=== PATIENT | male | born 1995 | race Caucasian/White ===

== ENCOUNTER 2018-12-12 22:50 | Emergency (ER) | payer OTHER ==
[2018-12-12] MEDS ORDERED: NORMAL SALINE 1000 ML 1,000 ML IV ONE (22:53)
--- NOTE | 2018-12-12 23:13 | ER Document Report ---
ED General - General Stated Complaint: PSYCH Time Seen by Provider: 12/12/18 22:52 Notes: Patient is a 23-year-old male who is brought in by paramedics. He is brought in after being sedated with 400 mg IM of ketamine. Please were called to the patient's house because the who is out of town was talking to him on phone and realized that he was acting abnormal. Medics were called by the police. They said that he was somewhat hyper and not making sense and not able to stay on topic. That he was all over the place of the house. They said he eventually took off all his close. I said initially he was still cooperative even though he was obviously confused and not himself. Once he got to the ambulance he started to freak out and started breaking stuff in the ambulance and swinging about and therefore they had sedation with ketamine. They said before the ketamine sedation his pupils were dilated. He said his heart rate appeared to be normal before sedation with ketamine. The told the paramedics and found the patient does have a previous history of overdose a month ago. He had overdosed on Celexa tablets. She says he also has a previous history of marijuana and acid use. He apparently has been doing well at home since the overdose and has not had any further issues until tonight. Patient is unable to contribute to history at this time. - Related Data Allergies/Adverse Reactions: No Known Allergies Allergy (Verified 12/12/18 23:56) Past Medical History - Social History Smoking Status: Unknown if Ever Smoked Frequency of alcohol use: unkown Drug Abuse: Other - unknown Family History: Reviewed & Not Pertinent Review of Systems - Review of Systems -: Yes ROS unobtainable due to patient's medical condition - Patient is sedated with ketamine. Physical Exam - Vital signs Vitals: Resp Pulse Ox 47 H 100 12/12/18 23:07 12/12/18 23:07 - Notes Notes: General Appearance: Patient lying still in bed. Patient under sedation from ketamine. Vitals: reviewed, See vital signs table. Head: no swelling or tenderness to the head Eyes: PERRL, EOMI, Conjuctiva clear Mouth: No decreasd moisture Throat: No tonsillar inflammation, No airway obstruction, No lymphadenopathy Lungs: No wheezing, No rales, No rhonci, No accessory muscle use, good air exchange bilaterally. Heart: Slightly tachycardic rate, Regular rythm, No murmur, no rub Abdomen: Normal BS, soft, No rigidity, No guarding, no rebound, no abdominal masses, no organomegaly Extremities: good pulses in all extremities, no swelling or tenderness in the extremities, no edema. Skin: warm, dry, appropriate color, no rash Neuro: Vision currently sedated from ketamine. Laying in bed not moving. Does not follow commands or answer questions at this time. Pulses are equal and reactive to light. Course - Re-evaluation Re-evalutation: 12/13/18 02:49 Patient is awake and alert and acting appropriately. The radiologist to call me until me that patient has numerous foci on the CT scan. He said these can be findings consistent with a young person but could also could represent cerebral edema. He says the patient remains confused or altered and he may need repeat imaging. Patient currently is back to his normal baseline. He is awake alert answers all questions appropriate. He says he somewhat remembers what happened. He said he had just smoked some marijuana. He says he felt like he was somewhat in control of what was happening however also felt like he was having a dream and that he had just fallen asleep. He denies using any other drugs. He is now fully neurologically intact. Cranial nerves II through XII are intact. Is able to stand and walk without difficulty. He has normal coordination of movements. I do not suspect the patient has cerebral edema based on his completely normal repeat neuro exam. I did explain the CT findings to the patient and explained my reasoning of why I do not think he has cerebral edema in his understanding of the. Patient says that he is ready to go home. He says he smokes marijuana on a daily basis to help deal with anxiety. He says he has been on medications in the past and seen psychiatry and psychology due to his anxiety but he says that medications never work as well as the marijuana and therefore that is why he does marijuana on a regular basis. I informed him that we have been noticing that there is been a lot of what we suspect is synthetic marijuana being cut with normal marijuana however this is not being told to be providing it and we have been seeing delirium at this reactions because of this. I informed him that he should not smoke from the same stash that he smoked from today. Patient shows understanding of this. Patient will be discharged home once his roommate arrives to take him home. I encouraged him return to ER at any time if he has any confusion, fevers, vomiting, headaches, or if he feels unwell. Patient agrees with plan will be discharged home. Dictation of this chart was performed using voice recognition software; the refore, there may be some unintended grammatical errors. - Vital Signs Vital signs: Temp Pulse Resp BP Pulse Ox 20 137/76 H 100 12/13/18 01:01 12/13/18 01:01 12/13/18 01:01 - Laboratory Result Diagrams: 12/12/18 23:29 12/12/18 23:29 Laboratory results interpreted by me: 12/12/18 12/12/18 12/13/18 23:29 23:29 00:00 WBC 11.1 H POC Glucose 114 H Total Protein 8.4 H Urine Protein Urine Ketones Urine Blood Urine Urobilinogen Salicylates < 1.0 L Acetaminophen < 10 L 12/13/18 00:25 WBC POC Glucose Total Protein Urine Protein 100 H Urine Ketones 20 H Urine Blood SMALL H Urine Urobilinogen 4.0 H Salicylates Acetaminophen - EKG Interpretation by Me Additional EKG results interpreted by me: 12/13/18 00:04 EKG is reviewed and interpreted by me. EKG shows sinus tachycardia with a rate of [address] segment elevation or depression. No ischemic T wave inversions. IL interval, QRS duration, QT intervals are within normal range. No old EKG available for comparison. Discharge - Discharge Clinical Impression: Marijuana use Altered mental status Qualifiers: Altered mental status type: unspecified Qualified Code(s): R41.82 - Altered mental status, unspecified Condition: Good Disposition: HOME, SELF-CARE Additional Instructions: Please avoid use of marijuana from the staff that you smoke from today. It may be mixed with a synthetic marijuana which sometimes can cause some agitation and worsening delirium. Your CT scan showed findings which are usual normal for a young person such such as yourself; however, the radiologist also mentions the same findings can also be seen in a person with cerebral edema (brain swelling). I do not suspect you have cerebral edema ( swelling of the brain) as you are now back to your normal baseline and acting appropriately and answering questions properly without any difficulty. We still want you to always have a low threshold to return to the ER if you are feeling confused in any way, headache, vomiting, have fevers, or feel unwell. Forms: Return to Work
[2018-12-12 23:37] LABS: ABSOLUTE MONOCYTES (AUTO) 1.1 10^3/uL (0.1-1.4); BASOPHILS % (AUTO) 0.4 % (0-2); EOSINOPHILS % (AUTO) 0.4 % (0-6); HEMATOCRIT 43.1 % (37.9-51.0); HEMOGLOBIN 14.5 g/dL (13.5-17.0); LYMPHOCYTES % (AUTO) 17.7 % (13-45); MEAN CORPUSCULAR HGB CONC 33.6 g/dL (32.0-36.0); MEAN CORPUSCULAR VOLUME 83 fl (80-97); MONOCYTES % (AUTO) 9.5 % (3-13); PLATELET COUNT 296 10^3/uL (150-450); RED BLOOD COUNT 5.17 10^6/uL (4.35-5.55); RED CELL DISTRIBUTION WIDTH 13.4 % (11.5-14.0); TOTAL CELLS COUNTED % (AUTO) 100 %; WHITE BLOOD COUNT 11.1 10^3/uL (4.0-10.5)
[2018-12-12 23:59] LABS: ACETAMINOPHEN < 10 ug/mL (10-30); ALANINE AMINOTRANSFERASE 30 U/L (21-72); ALBUMIN 4.9 g/dL (3.5-5.0); ALCOHOL < 10 mg/dL (NONE DETECTED); ALKALINE PHOSPHATASE 86 U/L (38-126); ANION GAP 12 (5-19); ASPARTATE AMINO TRANSFERASE 34 U/L (17-59); BILIRUBIN,DIRECT 0.4 mg/dL (0.0-0.4); BILIRUBIN,TOTAL 0.7 mg/dL (0.2-1.3); BLOOD UREA NITROGEN 16 mg/dL (7-20); CARBON DIOXIDE 23 mmol/L (22-30); CHLORIDE 105 mmol/L (98-107); GLUCOSE 98 mg/dL (75-110); POTASSIUM 3.9 mmol/L (3.6-5.0); SALICYLATE < 1.0 mg/dL (2.0-20.0); SODIUM 139.8 mmol/L (137-145); TOTAL PROTEIN 8.4 g/dL (6.3-8.2)
[2018-12-13 00:50] LABS: APPEARANCE,URINE SLIGHTLY-CLOUDY; BILIRUBIN,URINE NEGATIVE (NEGATIVE); GLUCOSE, URINE NEGATIVE (NEGATIVE); KETONES,URINE 20 mg/dL (NEGATIVE); LEUKOCYTE ESTERASE,URINE NEGATIVE (NEGATIVE); NITRITE,URINE NEGATIVE (NEGATIVE); PROTEIN,URINE 100 mg/dL (NEGATIVE); URINE SPECIFIC GRAVITY 1.028
[2018-12-13 00:51] LABS: COLOR,URINE YELLOW
[2018-12-13 01:10] LABS: URINE AMPHETAMINES SCREEN NEGATIVE; URINE BARBITURATES SCREEN NEGATIVE; URINE BENZODIAZEPINES SCREEN NEGATIVE; URINE COCAINE SCREEN NEGATIVE; URINE MARIJUANA (THC) SCREEN UNCONFIRMED POSITIVE; URINE METHADONE SCREEN NEGATIVE; URINE PHENCYCLIDINE SCREEN NEGATIVE
--- NOTE | 2018-12-13 01:52 | RADIOLOGY REPORT (SQ) ---
EXAM DESCRIPTION: CT HEAD WITHOUT IV CONTRAST COMPLETED DATE/TME: 12/12/2018 22:57 CLINICAL HISTORY: 23 years, Male, altered mental status COMPARISON: None. TECHNIQUE: Images stored on PACS. All CT scanners at this facility use dose modulation, iterative reconstruction, and/or weight based dosing when appropriate to reduce radiation dose to as low as reasonably achievable (ALARA). [facility]: Dose Right [facility]: CareDose [facility]: Dose Right [facility]: Teradose 4D [facility]: Travellution LIMITATIONS: None. FINDINGS: The cerebral sulci are very poorly visualized. No evidence of acute hemorrhage or infarct. No evidence of mass or hydrocephalus. Patel/white matter differentiation appears preserved. IMPRESSION: Very poorly visualized cerebral sulci. This appearance may merely be due to the patient's young age, however, early brain edema cannot entirely be excluded. Please correlate clinically. TECHNICAL DOCUMENTATION: Quality ID # [id number]: Final reports with documentation of one or more dose reduction techniques (e.g., Automated exposure control, adjustment of the mA and/or kV according to patient size, use of iterative reconstruction technique) copyright 2011 [employer]- All Rights Reserved
[2018-12-13 03:17] VITALS: BP 129/82
--- NOTE | 2018-12-13 09:00 | EKG REPORT ---
SEVERITY:- OTHERWISE NORMAL ECG - SINUS TACHYCARDIA : Confirmed by: Matt Grady MD 13-Dec-2018 08:58:59
== END 2018-12-13 03:20 | disposition home or self-care (01) ==
LOC: ER 22:50
DX: F29 Unspecified psychosis not due to a substance or known physiological condition (principal); R41.82 Altered mental status, unspecified; F12.90 Cannabis use, unspecified, uncomplicated
CPT/HCPCS: 93005; 99285; 51701; 36415; 82962; 80307 ×4; 85025; 80053; 81001; 70450; 93010; J7030; 96360; 96361